=== PATIENT | female | born 1980 | race Caucasian/White ===

== ENCOUNTER 2017-12-15 02:12 | Outpatient (CLI) | payer SELFPAY ==
[~2017-12-15] VITALS: Ht 160 cm; Wt 65.9 kg
[2017-12-15 02:21] VITALS: BP 153/80
[2017-12-15 03:02] LABS: MICROSCOPIC INDICATED
[2017-12-15 03:08] LABS: AMPHETAMINE SCREEN, URINE Negative (Negative); BARBITURATE SCREEN, URINE Negative (Negative); BENZODIAZEPINE SCREEN, URINE Negative (Negative); CANNABINOID SCREEN, URINE Negative (Negative); COCAINE SCREEN, URINE Negative (Negative); METHADONE SCREEN, URINE Negative (Negative); OPIATE SCREEN, URINE Negative (Negative)
[2017-12-15 03:15] LABS: BASOPHILS # (AUTO) 0.08 x10^3/uL (0-0.1); BASOPHILS % (AUTO) 1 % (0-1); EOSINOPHILS # (AUTO) 0.09 x10^3/uL (0-0.4); EOSINOPHILS % (AUTO) 1 % (1-7); LYMPHOCYTES # (AUTO) 1.79 x10^3/uL (1-3.4); LYMPHOCYTES % (AUTO) 12 % (22-44); MD NO; MEAN CORPUSCULAR HEMOGLOBIN 31.8 pg (27.0-34.8); MEAN CORPUSCULAR HGB CONC 33.9 g/dL (32.4-35.8); MEAN CORPUSCULAR VOLUME 93.9 fL (80-100); MEAN PLATELET VOLUME 9.8 fL (7.4-10.4); MONOCYTES # (AUTO) 0.97 x10^3/uL (0.2-0.8); MONOCYTES % (AUTO) 7 % (2-9); NEUTROPHILS # (AUTO) 12.02 x10^3/uL (1.8-6.8); NEUTROPHILS % (AUTO) 80 % (42-75); PLATELET COUNT 261 x10^3/uL (130-400); RED CELL DISTRIBUTION WIDTH 13.3 % (9.6-15.2)
[2017-12-15] MEDS ORDERED: RHOGAM FROM BLOOD BANK 1 NOTE EA IM/IV ONE (05:00)
[2017-12-15 05:12] LABS: MICROSCOPIC INDICATED
[2017-12-15] MEDS ORDERED: NITR100C56 PO (06:42)
== END 2017-12-15 06:45 | disposition home or self-care (01) ==
LOC: LDOP 02:12
PROVIDERS: ATTEND Obstetrics & Gynecology Gynecology
DX: O62.9 Abnormality of forces of labor, unspecified (principal); O23.43 Unspecified infection of urinary tract in pregnancy, third trimester; Z3A.36 36 weeks gestation of pregnancy
CPT/HCPCS: 36415; 59025; 76805; 80307; 81001; 85025; 85461; 86592; 86703; 86762; 86850; 86900; 87081; 87086; 87340; 87899; 99211; J2790; G0435; G0463

== ENCOUNTER 2018-06-26 05:57 | Emergency (ER) | payer SELFPAY ==
[~2018-06-26] VITALS: Ht 167.6 cm; Wt 60.0 kg
[~2018-06-26 05:57] MED LIST: NITR100C56 PO
[2018-06-26] MEDS ORDERED: HYDROcodone/APAP 5/325 TABLET ONE (06:58)
[2018-06-26] MEDS ORDERED: HYDROcodone/APAP 5/325 TABLET PO ONE (07:00)
[2018-06-26 07:03] VITALS: BP 104/71
== END 2018-06-26 08:33 | disposition home or self-care (01) ==
LOC: ED 06:57
DX: S89.91XA Unspecified injury of right lower leg, initial encounter (principal); G89.11 Acute pain due to trauma; R07.89 Other chest pain; W01.0XXA Fall on same level from slipping, tripping and stumbling without subsequent striking against object, initial encounter; Y93.02 Activity, running; Y92.410 Unspecified street and highway as the place of occurrence of the external cause; Y99.8 Other external cause status
CPT/HCPCS: 71046; 99284

== ENCOUNTER 2019-01-27 18:34 | Emergency (ER) | payer SELFPAY ==
[~2019-01-27] VITALS: Ht 167.6 cm; Wt 62.0 kg
[2019-01-27 18:37] VITALS: BP 115/69
[2019-01-27] MEDS ORDERED: ALBUTEROL/IPRATROPIUM 2.5MG/0.5MG, 3 ML NPPB ONE (19:00)
--- NOTE | 2019-01-27 19:04 | NUR ---
pt in room wearing mask. pt on nibp and o2 monitoring. pt provided a blanket for comfort.
[2019-01-27] MEDS ORDERED: ALBUTEROL/IPRATROPIUM 2.5MG/0.5MG, 3 ML ONE (19:09)
--- NOTE | 2019-01-27 20:51 | NUR ---
TO ROOM FOR DISCHARGE, PT APPARENTLY HAS A DOG THAT BARKED IN THIS NURSES FACE LOWING THE SIDE RAIL, PT GIVEN INSTRUCTIONS AND AWARE OF RX
== END 2019-01-27 20:59 | disposition home or self-care (01) ==
LOC: ED 19:51
DX: J06.9 Acute upper respiratory infection, unspecified (principal); R06.00 Dyspnea, unspecified; B34.9 Viral infection, unspecified; Z85.3 Personal history of malignant neoplasm of breast
CPT/HCPCS: 71046; 94640; 99283; J7512; J7620

== ENCOUNTER 2019-05-03 09:51 | Emergency (ER) | payer OTHER ==
[~2019-05-03] VITALS: Ht 167.6 cm; Wt 68.1 kg
--- NOTE | 2019-05-03 10:06 | NUR ---
NA AT 1006
[2019-05-03] MEDS ORDERED: PRAS5TAB3 PO (10:43)
--- NOTE | 2019-05-03 10:48 | NUR ---
PT TO ED FOR DENTAL ABSCESS IN UPPER LEFT MOUTH X2 WEEKS. PT STATES LAST NIGHT SHE "PUSHED OUT ALL THE GREEN PUS" AND HAS HAD MILD PAIN RELIEF SINCE THEN. PT . UNKNOWN GESTATION. PT STATES SHE MISSED LAST OB APPOINTMENT AND IS WORRIED SHE IS SEPTIC NOW. PT CONNECTED TO MONITORS. VSS. AWAITING EDMD ASSESSMENT.
--- NOTE | 2019-05-03 10:51 | NUR ---
PT ALSO STATES SHE HAS BEEN HAVING INTERMITTENT CRAMPS SINCE THIS MORNING AT 0500. DENIES VB AND DISCHARGE.
[2019-05-03 11:20] VITALS: BP 104/58
--- NOTE | 2019-05-03 11:21 | NUR ---
PT RESTING IN ROOM. VSS. NO NEEDS EXPRESSED. CALL LIGHT WITHIN REACH. AWAITING DISPO.
[2019-05-03] MEDS ORDERED: PREN1TAB10 PO (16:23)
[2019-05-03] MEDS ORDERED: LEVE500T53 PO (16:23)
== END 2019-05-03 12:20 | disposition home or self-care (01) ==
LOC: ED 12:14
DX: K04.7 Periapical abscess without sinus (principal); K02.9 Dental caries, unspecified
CPT/HCPCS: 99283

== ENCOUNTER 2019-05-03 12:36 | Outpatient (CLI) | payer SELFPAY ==
[~2019-05-03] VITALS: Ht 167.6 cm; Wt 68.1 kg
[~2019-05-03 12:36] MED LIST changes: +PRAS5TAB3 PO
[2019-05-03 13:00] VITALS: BP 114/55
[2019-05-03 14:36] LABS: BASOPHILS # (AUTO) 0.01 x10^3/uL (0-0.1); BASOPHILS % (AUTO) 0 % (0-1); EOSINOPHILS # (AUTO) 0.04 x10^3/uL (0-0.4); EOSINOPHILS % (AUTO) 0 % (1-7); LYMPHOCYTES # (AUTO) 1.66 x10^3/uL (1-3.4); LYMPHOCYTES % (AUTO) 10 % (22-44); MD NO; MEAN CORPUSCULAR HEMOGLOBIN 33.5 pg (27.0-34.8); MEAN CORPUSCULAR HGB CONC 33.5 g/dL (32.4-35.8); MEAN PLATELET VOLUME 8.5 fL (7.4-10.4); MONOCYTES # (AUTO) 0.78 x10^3/uL (0.2-0.8); MONOCYTES % (AUTO) 5 % (2-9); NEUTROPHILS # (AUTO) 14.56 x10^3/uL (1.8-6.8); NEUTROPHILS % (AUTO) 85 % (42-75); PLATELET COUNT 242 x10^3/uL (130-400); RED BLOOD COUNT 3.86 x10^6/uL (3.82-5.3); RED CELL DISTRIBUTION WIDTH 13.8 % (9.6-15.2)
[2019-05-03 14:40] LABS: AMPHETAMINE SCREEN, URINE Positive (Negative); BARBITURATE SCREEN, URINE Negative (Negative); BENZODIAZEPINE SCREEN, URINE Negative (Negative); CANNABINOID SCREEN, URINE Negative (Negative); COCAINE SCREEN, URINE Negative (Negative); METHADONE SCREEN, URINE Negative (Negative); OPIATE SCREEN, URINE Negative (Negative)
[2019-05-03 14:49] LABS: MICROSCOPIC INDICATED
[2019-05-03] MEDS ORDERED: PREN1TAB10 PO (16:23)
[2019-05-03] MEDS ORDERED: LEVE500T53 PO (16:23)
== END 2019-05-03 16:49 | disposition home or self-care (01) ==
LOC: LDOP 12:36
PROVIDERS: ATTEND Obstetrics & Gynecology
DX: O09.522 Supervision of elderly multigravida, second trimester (principal); Z3A.19 19 weeks gestation of pregnancy
CPT/HCPCS: 36415; 76805; 80307; 81001; 85025; 86592; 86762; 86803; 86850; 86900; 87077; 87086; 87186; 87340; 87491; 87591; 87806; 99201; G0463; G0475